=== PATIENT | female | born 1995 | race Caucasian/White ===

== ENCOUNTER 2018-01-27 07:40 | Day surgery (SDC) | payer BC ==
[~2018-01-27 07:40] MED LIST: Buffered Lidocaine 0.9% SYRIN* 5 ML/SYR SYRINGE INTRADERM ONE
[2018-01-27] MEDS ORDERED: Propofol* 10 MG/ML 20 ML BTL IV PUSH ONE (08:04)
[2018-01-27] MEDS ORDERED: Lidocaine 2% PF * 5 ML VIAL ONE ×2 (08:04)
[2018-01-27] MEDS ORDERED: Dexamethasone IV* 4 MG/ML 1 ML (4 MG) ONE (08:05)
[2018-01-27] MEDS ORDERED: Famotidine IV* 10 MG/ML 2 ML (20 mg) ONE (08:05)
[2018-01-27] MEDS ORDERED: fentaNYL* 50 MCG/ML 2 ML VIAL (100 MCG VIAL) ONE (08:31)
[2018-01-27] MEDS ORDERED: Midazolam* 1 MG/ML 2 ML VIAL (2 MG) ONE (08:31)
[2018-01-27] MEDS ORDERED: Rocuronium* 10 MG/ML VIAL ONE (09:00)
[2018-01-27] MEDS ORDERED: Metoclopramide IV* 5 MG/ML 2 ML VIAL ONE (09:14)
[2018-01-27] MEDS ORDERED: PROCHLORPERAZINE INJ 5 MG/ML 2 ML VIAL IV PRN (09:38)
[2018-01-27] MEDS ORDERED: Naloxone* 0.4 MG/ML 1 ML VIAL IV PRN (09:38)
[2018-01-27] MEDS ORDERED: HYDROmorphone INJ* 0.5 MG/0.5 ML SYRINGE IV PRN (09:38)
[2018-01-27] MEDS ORDERED: Acetaminophen IV 1GM/100ML * 1,000 MG/100 ML VIAL IVPB ONE (09:38)
[2018-01-27] MEDS ORDERED: DiMENhydriNATE IV* 50 MG/ML VIAL IV PUSH PRN (09:38)
[2018-01-27] MEDS ORDERED: Acetaminophen IV 1GM/100ML * 100 ML ONE (10:26)
[2018-01-27 11:17] VITALS: BP 109/55
--- NOTE | 2018-01-27 17:27 | OP ---
OPERATIVE REPORT: DATE OF OPERATION: 01/27/18 - SDS DATE OF : [birth year] SURGEON: Kwasi Baltazar M.D. ANESTHESIOLOGIST: Vannessa Holman D.O. ANESTHESIA: General. PRE-OP DIAGNOSIS: Chronic tonsillitis. POST-OP DIAGNOSIS: Chronic tonsillitis. OPERATIVE PROCEDURE: Tonsillectomy. BRIEF HISTORY: This 22-year-old female with frequent tonsillitis and elected for surgical management. DESCRIPTION OF PROCEDURE: The patient was taken to the operating room, general anesthetic was given, patient intubated. Tongue, mandible, and soft palate were retracted. Coblator was used to remove the tonsils. Once hemostasis was obtained, the patient was awakened, extubated, and sent to recovery room in stable condition. Instrument and sponge counts were correct. Blood loss minimal. [id number] #: [id number]
== END 2018-01-27 11:18 | disposition home or self-care (01) ==
LOC: OR 07:40
PROVIDERS: ATTEND Otolaryngology
DX: J35.01 Chronic tonsillitis (principal)
CPT/HCPCS: 81025; 88304; J1100; J2250; J2704; J2765; J3010